=== PATIENT | female | born 1955 | race Caucasian/White ===

== ENCOUNTER 2018-12-14 07:18 | Emergency (ER) | payer BC, OTHER ==
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
[2018-12-14] MEDS ORDERED: IBUPROFEN 400 MG TAB ONE ×2 (08:50→08:53)
[2018-12-14] MEDS ORDERED: DIAZEPAM 5 MG TABLET ONE ×2 (08:50→08:53)
== END 2018-12-14 08:44 | disposition home or self-care (01) ==
LOC: ER 07:18
DX: G44.209 Tension-type headache, unspecified, not intractable (principal); V49.40XA Driver injured in collision with unspecified motor vehicles in traffic accident, initial encounter; I10 Essential (primary) hypertension; E03.9 Hypothyroidism, unspecified
CPT/HCPCS: 70450; 72125; 99284

== ENCOUNTER 2020-10-10 03:43 | Observation (INO) | payer BC ==
[2020-10-10 04:18] LABS: Protime INR 0.88
[2020-10-10 04:19] LABS: Basophils % 1.1 % (0-1.3); Hematocrit 42.4 % (36.0-45.0); Lymphocytes % 42.1 % (15.3-44.8); RBC Red Blood Cell Count 4.73 M/uL (3.86-4.86)
[2020-10-10 04:48] LABS: ALT/SGPT 39 U/L (12-78); Albumin 3.8 g/dL (3.4-5.0); Alkaline Phosphatase 97 U/L (45-117); BUN Blood Urea Nitrogen 8 mg/dL (7-18); Bicarbonate 28 mmol/L (21-32); Bilirubin Direct < 0.1 mg/dL (0-0.2); Bilirubin Total 0.3 mg/dL (0.2-1.0); Glucose Level 109 mg/dL (74-106); NT PRO-BNP 45 pg/mL (<125); Protein, Total 7.7 g/dL (6.4-8.2); Sodium Level 145 mmol/L (136-145); Troponin (Emerg Dept Use Only) < 0.02 ng/mL (0.0-0.045)
[2020-10-10 04:49] LABS: AST/SGOT 23 U/L (15-37); Magnesium 2.4 mg/dL (1.8-2.4); Potassium 4.4 mmol/L (3.5-5.1)
--- NOTE | 2020-10-10 05:07 | EDPHYS ---
Physician Documentation [facility] Name: Rani Abraham Age: 65 yrs Sex: Female : 1955 Arrival Date: 10/10/2020 Time: 03:45 Bed 5 Private MD: ED Physician Ap Sanchez HPI: 10/10 06:39 This 65 yrs old Female presents to ER via Ambulatory with complaints of Chest tw4 Pain. 06:39 The patient or guardian reports chest pain that is located primarily in the anterior tw4 chest wall. Onset: today. The pain does not radiate. Associated signs and symptoms: The patient has no apparent associated signs or symptoms. Duration: The patient or guardian reports a single episode. Severity of pain: At its worst the pain was moderate. Historical: - Allergies: 03:58 Penicillins; em 03:58 Ephedrine Sulfate; em - Home Meds: 03:58 metoprolol succinate 50 mg oral Tb24 1 tab once daily [Active]; levothyroxine 112 mcg em tab 1 tab once daily [Active]; - PMHx: 03:58 Hypertension; Hypothyroidism; em - PSHx: 03:58 None; em - Immunization history:: Adult Immunizations up to date. - Social history:: Smoking status: Patient denies any tobacco usage or history of. ROS: 06:39 Constitutional: Negative for fever, chills, and weight loss, Eyes: Negative for injury, tw4 pain, redness, and discharge, Respiratory: Negative for shortness of breath, cough, wheezing, and pleuritic chest pain, Abdomen/GI: Negative for abdominal pain, nausea, vomiting, diarrhea, and constipation, Back: Negative for injury and pain, MS/Extremity: Negative for injury and deformity, Skin: Negative for injury, rash, and discoloration, Neuro: Negative for headache, weakness, numbness, tingling, and seizure. 06:39 Cardiovascular: Positive for chest pain, Negative for edema, orthopnea, palpitations. Exam: 06:39 Constitutional: This is a well developed, well nourished patient who is awake, alert, tw4 and in no acute distress. Head/Face: Normocephalic, atraumatic. Chest/axilla: Normal chest wall appearance and motion. Nontender with no deformity. No lesions are appreciated. Cardiovascular: Regular rate and rhythm with a normal S1 and S2. No gallops, murmurs, or rubs. Normal PMI, no JVD. No pulse deficits. Respiratory: Lungs have equal breath sounds bilaterally, clear to auscultation and percussion. No rales, rhonchi or wheezes noted. No increased work of breathing, no retractions or nasal flaring. Abdomen/GI: Soft, non-tender, with normal bowel sounds. No distension or tympany. No guarding or rebound. No evidence of tenderness throughout. Back: No spinal tenderness. No costovertebral tenderness. Full range of motion. MS/ Extremity: Pulses equal, no cyanosis. Neurovascular intact. Full, normal range of motion. Neuro: Awake and alert, GCS 15, oriented to person, place, time, and situation. Cranial nerves II-XII grossly intact. Motor strength 5/5 in all extremities. Sensory grossly intact. Cerebellar exam normal. Normal gait. Vital Signs: 03:53 BP 148 / 91; Pulse 62; Resp 18; Temp 98.2(O); Pulse Ox 100% on R/A; Weight 81.65 kg; em Height 5 ft. 4 in. (162.56 cm); Pain 3/10; 05:00 BP 118 / 65; Pulse 72; Resp 17; Pulse Ox 98% ; rr5 06:00 BP 123 / 69; Pulse 65; Resp 16; Pulse Ox 98% ; rr5 03:53 Body Mass Index 30.90 (81.65 kg, 162.56 cm) em MDM: 03:47 Patient medically screened. tw4 06:43 Differential diagnosis: coronary artery disease cholecystitis, Cholelithiasis tw4 costochondritis, esophagitis, herpes zoster, Capri-Reese syndrome, pulmonary embolus, thoracic aortic disection. HEART Score: History: Moderately Suspicious (1), ECG: Non specific repolarization disturbance / LBTB / PM (1), Age: > 45 and < 65 years (1), Risk Factors: No Risk Factors Known (0), Troponin: < or = 1 x Normal Limit (0), Total Score = 2. The patient was given aspirin in the Emergency Department. Data reviewed: vital signs, nurses notes. Data interpreted: Pulse oximetry: Interpretation: normal. Counseling: I had a detailed discussion with the patient and/or guardian regarding: the historical points, exam findings, and any diagnostic results supporting the discharge/admit diagnosis, lab results, radiology results. 10/10 03:48 Order name: Basic Metabolic Panel tw4 10/10 03:48 Order name: CBC with Diff tw4 10/10 03:48 Order name: LFT's tw4 10/10 03:48 Order name: Magnesium tw 10/10 03:48 Order name: NT PRO-BNP tw4 10/10 03:48 Order name: PT-INR tw4 10/10 03:48 Order name: Troponin (emerg Dept Use Only) tw 10/10 05:05 Order name: COVID-19 : Document "Date of Symptom Onset" if Symptomatic. rr5 10/10 05:32 Order name: T4 Free [facility] 10/10 05:32 Order name: CBC with Automated Diff [facility] 10/10 05:32 Order name: CBC with Automated Diff EDMS 10/10 05:32 Order name: Comprehensive Metabolic Panel [facility] 10/10 05:32 Order name: Comprehensive Metabolic Panel [facility] 10/10 03:48 Order name: XRAY Chest (1 view) tw4 10/10 03:48 Order name: EKG; Complete Time: 03:49 tw4 10/10 03:48 Order name: Cardiac monitoring; Complete Time: 03:57 tw4 10/10 03:48 Order name: EKG - Nurse/Tech; Complete Time: 03:57 10/10 03:48 Order name: IV Saline Lock; Complete Time: 03:57 tw4 10/10 05:32 Order name: NPO [facility] 10/10 05:32 Order name: Lipid Profile [facility] 10/10 05:32 Order name: Lipid Profile [facility] 10/10 05:32 Order name: Magnesium [facility] 10/10 05:32 Order name: Magnesium [facility] 10/10 05:32 Order name: Troponin I [facility] 10/10 05:32 Order name: Troponin I [facility] 10/10 05:32 Order name: Troponin I [facility] 10/10 05:32 Order name: Thyroid Stimulating Hormone [facility] 10/10 06:17 Order name: SARS-COV-2 RT PCR [facility] 10/10 03:48 Order name: Labs collected and sent; Complete Time: 03:57 tw4 10/10 03:48 Order name: O2 Per Protocol; Complete Time: 03:57 tw4 10/10 03:48 Order name: O2 Sat Monitoring; Complete Time: :57 tw4 EC:39 Rate is 59 beats/min. Rhythm is regular. QRS [place] is Normal. ID interval is normal. QRS tw4 interval is normal. QT interval is normal. No Q waves. T waves are Normal. No ST changes noted. Clinical impression: Sinus bradycardia. Interpreted by me. Reviewed by me. Administered Medications: 05:17 Drug: Aspirin Chewable Tablet 324 mg Route: PO; rr5 06:19 Follow up: Response: No adverse reaction rr5 Disposition: 10/10/20 05:[address] by Areil [address] for Observation. Preliminary diagnosis is Angina pectoris, unspecified. - Bed requested for Telemetry/MedSurg (observation). - Status is Observation. bp - Condition is Stable. - Problem is new. - Symptoms have improved. Signatures: Dispatcher [employer] EDNY Marni Wagner RN Isis Huynh RN RN Mario Fermin, RN Nahum Porter RN Ap Stout MD MD tw4 John Jay RN RN rr5 Corrections: (The following items were deleted from the chart) 05:23 05:06 CORONAVIRUS ordered. [facility] EDNY 05:33 05:06 Hospitalization Ordered by Ariel Way DO for Observation. Preliminary diagnosis is Angina pectoris, unspecified. Bed requested for Telemetry/MedSurg (observation). Status is Observation. Condition is Stable. Problem is new. Symptoms have improved. tw4 07:47 05:33 10/10/2020 05:06 Hospitalization Ordered by Ariel Way DO for Observation. dw Preliminary diagnosis is Angina pectoris, unspecified. Bed requested for [facility] ER HOLD. Status is Observation. Condition is Stable. Problem is new. Symptoms have improved. mw 07:49 07:47 10/10/2020 05:06 Hospitalization Ordered by Ariel Way DO for Observation. dw Preliminary diagnosis is Angina pectoris, unspecified. Bed requested for Telemetry/MedSurg (observation). Status is Observation. Condition is Stable. Problem is new. Symptoms have improved. dw 08:12 07:49 10/10/2020 05:06 Hospitalization Ordered by Ariel Way DO for Observation. bp Preliminary diagnosis is Angina pectoris, unspecified. Bed requested for Telemetry/MedSurg (observation). Status is Observation. Condition is Stable. Problem is new. Symptoms have improved. dw
--- NOTE | 2020-10-10 05:07 | ER ---
Nurse's Notes [facility] Name: Rani Abraham Age: 65 yrs Sex: Female : 1955 Arrival Date: 10/10/2020 Time: 03:45 Bed 5 Private MD: Diagnosis: Angina pectoris, unspecified Presentation: 10/10 03:53 Chief complaint: Patient states: chest pain that started since Friday, but tonight em was worse, denies N/V or cold sweats. Coronavirus screen: Client denies travel out of the [place] in the last 14 days. Ebola Screen: Patient negative for fever greater than or equal to 101.5 degrees Fahrenheit, and additional compatible Ebola Virus Disease symptoms Patient denies exposure to infectious person. Patient denies travel to an Ebola-affected area in the 21 days before illness onset. No symptoms or risks identified at this time. Initial Sepsis Screen: Does the patient meet any 2 criteria? No. Patient's initial sepsis screen is negative. Does the patient have a suspected source of infection? No. Patient's initial sepsis screen is negative. Risk Assessment: Do you want to hurt yourself or someone else? Patient reports no desire to harm self or others. Onset of symptoms was October 10, 2020. 03:53 Method Of Arrival: Ambulatory em 03:53 Acuity: [place] 3 em Historical: - Allergies: 03:58 Penicillins; em 03:58 Ephedrine Sulfate; em - Home Meds: 03:58 metoprolol succinate 50 mg oral Tb24 1 tab once daily [Active]; levothyroxine 112 mcg em tab 1 tab once daily [Active]; - PMHx: 03:58 Hypertension; Hypothyroidism; em - PSHx: 03:58 None; em - Immunization history:: Adult Immunizations up to date. - Social history:: Smoking status: Patient denies any tobacco usage or history of. Screenin:57 Abuse screen: Denies threats or abuse. Denies injuries from another. Nutritional rr5 screening: No deficits noted. Tuberculosis screening: No symptoms or risk factors identified. Fall Risk IV access (20 points). Total Mendez Fall Scale indicates No Risk (0-24 pts). 03:57 Abuse screen: Denies threats or abuse. Nutritional screening: No deficits noted. ea Tuberculosis screening: No symptoms or risk factors identified. Fall Risk IV access (20 points). Assessment: 03:58 General: Appears in no apparent distress. comfortable, Behavior is calm, cooperative, rr5 appropriate for age. Pain: Complains of pain in chest Pain radiates to left arm and neck Pain currently is 3 out of 10 on a pain scale. Quality of pain is described as aching, Pain began gradually, Is intermittent. Neuro: Level of Consciousness is awake, alert, obeys commands, Oriented to person, place, time. Cardiovascular: Reports chest pain, Capillary refill < 3 seconds Patient's skin is warm and dry. Respiratory: Airway is patent Respiratory effort is even, unlabored, Respiratory pattern is regular, symmetrical. GI: No signs and/or symptoms were reported involving the gastrointestinal system. : No signs and/or symptoms were reported regarding the genitourinary system. EENT: No signs and/or symptoms were reported regarding the EENT system. Derm: Skin is intact, is healthy with good turgor, Skin temperature is warm. Musculoskeletal: Capillary refill < 3 seconds. 03:58 General: Appears in no apparent distress. Behavior is calm, cooperative, appropriate ea for age. Pain: Complains of pain in chest Pain does not radiate. Pain began 2-3 days ago. Neuro: Level of Consciousness is awake, alert, obeys commands, Oriented to person, place, time. Cardiovascular: Patient's skin is warm and dry. Respiratory: Airway is patent Respiratory effort is even, unlabored, Respiratory pattern is regular, symmetrical. Derm: Skin is pink, warm \T\ dry. 05:06 Reassessment: Patient appears in no apparent distress at this time. Patient is alert, rr5 oriented x 3, equal unlabored respirations, skin warm/dry/pink. hospitalist at bedside. 05:10 Reassessment: verbal order by hospitalist aspirin 324 tablet PO to be given. rr5 Vital Signs: 03:53 BP 148 / 91; Pulse 62; Resp 18; Temp 98.2(O); Pulse Ox 100% on R/A; Weight 81.65 kg; em Height 5 ft. 4 in. (162.56 cm); Pain 3/10; 05:00 BP 118 / 65; Pulse 72; Resp 17; Pulse Ox 98% ; rr5 06:00 BP 123 / 69; Pulse 65; Resp 16; Pulse Ox 98% ; rr5 03:53 Body Mass Index 30.90 (81.65 kg, 162.56 cm) em ED Course: 03:45 Patient arrived in ED. ag3 03:46 John Jay, RN is Primary Nurse. rr5 03:47 Ap Sanchez MD is Attending Physician. tw4 03:55 Triage completed. em 03:57 Patient has correct armband on for positive identification. Placed in gown. Bed in low rr5 position. Call light in reach. desk monitor on. Pulse ox on. NIBP on. 03:57 Inserted saline lock: 20 gauge in right antecubital area, using aseptic technique. ea Blood collected. 03:58 Arm band placed on right wrist. Patient placed in an exam room, on a stretcher, on ea monitoring coordinator, on pulse oximetry. EKG completed in triage. Results shown to MD. 03:58 EKG done, by ED staff, reviewed by Ap Sanchez MD. rr5 03:58 Patient maintains SpO2 saturation greater than 95% on room air. ea 04:13 XRAY Chest (1 view) In Process Unspecified. EDMS 05:[address] DO is Hospitalizing Provider. tw4 05:16 COVID swab sent to lab. rr5 05:25 No provider procedures requiring assistance completed. Patient admitted, IV remains in rr5 place. intact, No redness/swelling at site. 07:18 Primary Nurse role handed off by John Jay RN 07:20 Nahum Swain, RUTHY is Primary Nurse. bp Administered Medications: 05:17 Drug: Aspirin Chewable Tablet 324 mg Route: PO; rr5 06:19 Follow up: Response: No adverse reaction rr5 Outcome: 05:06 Decision to Hospitalize by Provider. tw4 06:18 Admitted to ER Hold. [facility] see [facility] for further documentation. rr5 06:18 Condition: stable 06:18 Instructed on the need for admit. 08:12 Patient left the ED. bp Signatures: Dispatcher [employer] EDMS Tanya Paz Edgar, Rukhsana Shields RN, RN RN ea Peltier, Brian, RN RN bp Ap Sanchez MD MD tw4 Minnie Tanner ag3 John Jay, RN RN rr5
--- NOTE | 2020-10-10 05:16 | P.HP ---
Certification for Inpatient Patient admitted to: Observation With expected LOS: <2 Midnights Patient will require the following post-hospital care: None Practitioner: I am a practitioner with admitting privileges, knowledge of patient current condition, hospital course, and medical plan of care. Services: Services provided to patient in accordance with Admission requirements found in Title 42 Section 412.3 of the Code of Federal Regulations Patient History Date of Service: 10/10/20 Primary Care Provider: Dr. Rojas Reason for admission: Chest pain History of Present Illness: 65-year-old female with history of hypertension, hypothyroidism presents emergency department for chest pain. Patient reports that he has been arranged chest pain over the course of the last 2 days with some aching/sharp pain radiating to the left shoulder/neck/jaw area. Pain not reproducible with movement/palpitations/breathing. Patient reports last cardiac evaluation approximately 1.5 years ago with stress test that was reported to be negative at that time. Father has history of CAD with CABG. Initial labs, EKG, chest x-ray unremarkable in the ED, ED provider wishes to admit patient for observation for chest pain rule out. - Past Medical/Surgical History -: Hypertension -: Hypothyroidism -: none Psychosocial/ Personal History: Patient lives with - Family History Father -: Heart disease - Social History Smoking Status: Never smoker Alcohol use: No CD- Drugs: No Caffeine use: Yes Place of Residence: Home Review of Systems 10-point ROS is otherwise unremarkable Cardiovascular: Chest Pain, As per HPI Physical Examination - Physical Exam General: Alert, In no apparent distress HEENT: Atraumatic, PERRLA, Mucous membr. moist/pink, EOMI, Sclerae nonicteric Neck: Supple, 2+ carotid pulse no bruit, No LAD, Without JVD or thyroid abno rmality Respiratory: Clear to auscultation bilaterally, Normal air movement Cardiovascular: Regular rate/rhythm, Normal S1 S2 Gastrointestinal: Normal bowel sounds, No tenderness Musculoskeletal: No tenderness Integumentary: No rashes Neurological: Normal speech, Normal strength at 5/5 x4 extr, Normal tone, Normal affect - Studies Laboratory Data (last 24 hrs) 10/10/20 03:54: PT 10.1, INR 0.88 10/10/20 03:54: WBC 4.90, Hgb 14.0, Hct 42.4, Plt Count 154 10/10/20 03:54: Sodium 145, Potassium 4.4, BUN 8, Creatinine 0.79, Glucose 109 H, Magnesium 2.4, Total Bilirubin 0.3, AST 23, ALT 39, Alkaline Phosphatase 97 Assessment and Plan - Plan Assessment Chest pain rule out ACS Hypertension Hypothyroidism Plan Chest pain rule out ACS: Cardiology consult in place, monitor on telemetry, trend troponin levels. Lipid panel and thyroid panel with next troponin check. NPO in case cardiology prefers intervention/evaluation at this time. DVT prophylaxis Lovenox 40 mg subcutaneous once daily. Daily aspirin, beta-caesar. Patient reports that she has not tolerated statin therapy, will hold off at this time. Hypertension: Continue Toprol Hypothyroidism: Continue Synthroid Discharge Plan: Home Plan to discharge in: 24 Hours - Advance Directives Does patient have a Living Will: No Does patient have a Durable POA for Healthcare: No - Code Status/Comfort Care Code Status Assessed: Yes (Full code) Critical Care: No Time Spent Managing Pts Care (In Minutes): 55
[2020-10-10] MEDS ORDERED: ASPIRIN 81 MG CHEWABLE TABLET ONE (05:28)
[2020-10-10] MEDS ORDERED: ACETAMINOPHEN 500 MG TAB PO PRN (05:31)
[2020-10-10] MEDS ORDERED: ONDANSETRON 4 MG/2 ML VIAL IV PRN (05:31)
[2020-10-10 05:57] VITALS: BMI 30.9
[2020-10-10] MEDS ORDERED: METOPROLOL XL 50 MG TAB PO SCH (06:00)
[2020-10-10] MEDS ORDERED: LEVOTHYROXINE SOD 0.112 MG TAB PO SCH (06:30)
[2020-10-10 08:17] VITALS: O2SAT 98
[2020-10-10] MEDS ORDERED: ASPIRIN EC 81 MG TAB PO SCH (09:00)
[2020-10-10] MEDS ORDERED: ENOXAPARIN 40 MG/0.4 ML SQ SCH (09:00)
--- NOTE | 2020-10-10 09:20 | RAD REPORT ---
EXAM DESCRIPTION: RAD - Chest Single View - 10/10/2020 4:14 am CLINICAL HISTORY: CHEST PAIN Chest pain. COMPARISON: No comparisons FINDINGS: Portable technique limits examination quality. The lungs are grossly clear. The heart is normal in size. No displaced fractures. IMPRESSION: No acute intrathoracic process suspected.
[2020-10-10 10:22] VITALS: BP 129/66
--- NOTE | 2020-10-10 11:23 | P.DS ---
Admission Date: 10/10/20 Discharge Date: 10/10/20 Primary Care Provider: Dr. Rojas Disposition: ROUTINE DISCHARGE Discharge Condition: GOOD Reason for Admission: Chest pain Consultations: Cardiology-Dr. Cedeño Procedures: COVID: Negative Medical Problem List: Chest pain Hypertension Hypothyroidism Obesity, BMI 30.9 Brief History of Present Illness: 65-year-old female with history of hypertension, hypothyroidism presented with chest pain. Patient was admitted for further evaluation and treatment. Initial cardiac enzymes unremarkable. Hospital Course: Patient presented with chest pain. Patient with history of hypertension and hypothyroidism. Blood pressures were elevated. Her medication was adjusted. During the course of her stay cardiac enzymes unremarkable. Patient was seen and evaluated by cardiology. Cardiology recommended outpatient cardiac stress t est and echo to further evaluate. At discharge she is without significant chest pain. Toprol was increased to 100 mg daily for better blood pressure control. At discharge she may continue with Toprol-XL 100 mg daily. We will also recommend to start aspirin 81 mg daily. Recommend to monitor blood pressure daily. Recommend to maintain blood pressure less than 130/80. Further adjustment can be done by her PCP or cardiology. Patient will follow up with cardiology within 1 week for outpatient cardiac stress test and echocardiogram to further evaluate. Patient with hypothyroidism. This appears stable. At discharge she will continue with her current medicationlevothyroxine 112 mcg daily. Vital Signs/Physical Exam: Temp Pulse Resp BP Pulse Ox 97.5 F 57 18 129/66 99 10/10/20 08:00 10/10/20 08:00 10/10/20 08:00 10/10/20 08:00 10/10/20 08:00 General: Alert, In no apparent distress, Oriented x3, Cooperative HEENT: Atraumatic Neck: Supple Respiratory: Clear to auscultation bilaterally, Normal air movement Cardiovascular: Normal pulses, Regular rate/rhythm Gastrointestinal: Normal bowel sounds, Soft and benign, Non-distended, No tenderness, No masses, No rebound, No guarding Integumentary: No tenderness/swelling, No erythema, No warmth, No cyanosis Neurological: Normal speech, Normal strength at 5/5 x4 extr, Normal tone, Normal affect Laboratory Data at Discharge: WBC 4.90 K/uL (4.3-10.9) 10/10/20 03:54 Hgb 14.0 g/dL (12.0-15.0) 10/10/20 03:54 Hct 42.4 % (36.0-45.0) 10/10/20 03:54 Plt Count 154 K/uL (152-406) 10/10/20 03:54 PT 10.1 SECONDS (9.5-12.5) 10/10/20 03:54 INR 0.88 10/10/20 03:54 Sodium 145 mmol/L (136-145) 10/10/20 03:54 Potassium 4.4 mmol/L (3.5-5.1) 10/10/20 03:54 BUN 8 mg/dL (7-18) 10/10/20 03:54 Creatinine 0.79 mg/dL (0.55-1.3) 10/10/20 03:54 Glucose 109 mg/dL (74-106) H 10/10/20 03:54 Magnesium 2.4 mg/dL (1.8-2.4) 10/10/20 03:54 Total Bilirubin 0.3 mg/dL (0.2-1.0) 10/10/20 03:54 AST 23 U/L (15-37) 10/10/20 03:54 ALT 39 U/L (12-78) 10/10/20 03:54 Alkaline Phosphatase 97 U/L (45-117) 10/10/20 03:54 Troponin I Cancelled 10/10/20 17:00 Home Medications: Aspirin [Aspirin EC 81 MG] 81 mg PO DAILY #90 tablet. 10/10/20 Levothyroxine Sodium [Levothyroxine] 112 mcg PO DAILY 10/10/20 Metoprolol Succinate 100 mg PO DAILY #60 10/10/20 New Medications: Aspirin [Aspirin EC 81 MG] 81 mg PO DAILY #90 tablet. Metoprolol Succinate 100 mg PO DAILY #60 Physician Discharge Instructions: Patient presented with chest pain. Patient with history of hypertension and hypothyroidism. Blood pressures were elevated. Her medication was adjusted. During the course of her stay cardiac enzymes unremarkable. Patient was seen and evaluated by cardiology. Cardiology recommended outpatient cardiac stress test and echo to further evaluate. At discharge she is without significant chest pain. Toprol was increased to 100 mg daily for better blood pressure control. At discharge she may continue with Toprol-XL 100 mg daily. We will also recommend to start aspirin 81 mg daily. Recommend to monitor blood pressure daily. Recommend to maintain blood pressure less than 130/80. Further adjustment can be done by her PCP or cardiology. Patient will follow up with cardiology within 1 week for outpatient cardiac stress test and echocardiogram to further evaluate. Patient with hypothyroidism. This appears stable. At discharge she will continue with her current medication levothyroxine 112 mcg daily. Diet: AHA Activity: Ad rl Followup: Mandi Rojas MD [Primary Care Provider] - Time spent managing pt's care (in minutes): 55
[2020-10-10 11:35] LABS: Thyroid Stimulating Hormone 1.36 uIU/mL (0.360-3.740)
[2020-10-10 14:27] VITALS: TEMP 97.9
--- NOTE | 2020-10-11 17:04 | EKG ---
Test Date: 2020-10-10 Test Time: 03:54:16 Malt Specifications Control Assistant: RR MEASUREMENT RESULTS: Intervals: Rate: 59 CT: 166 QRSD: 78 QT: 428 QTc: 423 [place]: P: 46 CT: 166 QRS: 27 T: 39 INTERPRETIVE STATEMENTS: Sinus bradycardia Otherwise normal ECG Compared to ECG 09/21/1997 21:33:00 Sinus rhythm no longer present Electronically Signed On 10-11-20 17:00:49 CDT by Guillermo Cedeño
--- NOTE | 2020-10-12 19:38 | CON ---
Date of Consultation: 10/10/2020 Reason For Consultation: Chest pain. History Of Present Illness: Ms. Abraham is a 65-year-old woman. Has a history of hypertension, hy pothyroidism. Came in with atypical chest pain, left lateral to mid epigastric, nonexertional, sharp , stabbing. No nausea, vomiting, diaphoresis, PND, orthopnea, pedal edema, palpitations, or syncope. By the time I saw her, she has already ruled out for an MD. Past Medical History: As stated above. Allergies: PSEUDOEPHEDRINE AND PENICILLIN. Review of Systems: Negative. Social History: Negative. Family History: Positive for heart disease. Medications: At home include metoprolol 50 mg daily and Synthroid. Physical Examination: Vital Signs: Stable, afebrile. HEENT: Negative. Neck: Supple with no bruit. Chest: Clear to auscultation and percussion. Cardiac: Revealed a regular rhythm and rate. No murmurs, gallops, or rubs. Abdomen: Benign. Extremities: Revealed no clubbing, cyanosis, or edema. Diagnostic Data: All normal. Impression And Plan: Atypical chest pain in a patient with history of hypertension, very strong fami ly history of heart disease. MD has ruled out. EKG is normal. I am comfortable with her going home. I will set her up for an outpatien t echocardiogram and an MPI. ENDY/CHRISTINA Voice ID: [id number] Report ID: [id number]
== END 2020-10-10 13:15 | disposition home or self-care (01) ==
LOC: ER 03:43 → ERHOLD 05:35 → 2ND 07:59
PROVIDERS: ADMIT Family Medicine; ATTEND Family Medicine
DX: R07.9 Chest pain, unspecified (principal); I10 Essential (primary) hypertension; E03.9 Hypothyroidism, unspecified; E66.9 Obesity, unspecified; Z68.30 Body mass index [BMI] 30.0-30.9, adult; Z20.822 Contact with and (suspected) exposure to COVID-19; Z88.0 Allergy status to penicillin; Z88.2 Allergy status to sulfonamides; Z88.8 Allergy status to other drugs, medicaments and biological substances; Z82.49 Family history of ischemic heart disease and other diseases of the circulatory system
CPT/HCPCS: 93005; 85025; 80048; 36415; 83735; 85610; 80076; 84443; 84484 ×2; 84439; 83880; 71045; U0003; J1650; 99285; G0378